=== PATIENT | female | born 1980 | race African-American/Black ===

== ENCOUNTER 2017-01-29 14:14 | Emergency (ER) | payer OTHER ==
[2017-01-29] MEDS ORDERED: IOPAMIDOL 300 (61%) 100 ML VIAL IV ONE (14:15)
[2017-01-29 14:41] LABS: SPECIFIC GRAVITY 1.015 (1.001-1.030); URINE APPEARANCE CLEAR; URINE BILIRUBIN NEGATIVE (NEGATIVE); URINE BLOOD NEGATIVE (NEGATIVE); URINE COLOR YELLOW; URINE GLUCOSE (UA) 3+ (NEGATIVE); URINE LEUKOCYTE ESTERASE NEGATIVE (NEGATIVE); URINE NITRITE NEGATIVE (NEGATIVE); URINE PROTEIN NEGATIVE (NEGATIVE); URINE UROBILINOGEN NORMAL (0-1 mg/dl)
[2017-01-29 14:43] LABS: HCG,QUALITATIVE URINE NEGATIVE
[2017-01-29] MEDS ORDERED: LACTATED RINGERS 1,000 ML ONE (15:05)
[2017-01-29] MEDS ORDERED: LORAZEPAM 2 MG/ML 1ML SDV ONE (15:06)
[2017-01-29 15:23] LABS: ABSOLUTE NEUTROPHIL COUNT 7.9 K/mm3 (1.8-7.7); BASO # 0.1 K/mm3 (0.0-0.2); BASO % 0.5 % (0.2-1.0); EOS # 0.1 (0.0-0.5); HEMATOCRIT 43.9 % (37.0-47.0); IMM NEUT # 0.1 K/mm3 (0-0.2); IMM NEUT% 0.5 % (0-1); LYMPH # 2.7 (1.0-4.8); LYMPH % 23.5 % (15-45); MEAN CELL VOLUME 87.8 fl (81.0-99.0); MEAN CORPUSCULAR HGB CONC 34.2 g/dl (33.0-37.0); MEAN PLATELET VOLUME 11.9 fl (7.4-10.4); MONO # 0.7 (0.0-0.8); MONO % 5.7 % (4-12); NEUT % 68.8 % (43-75); PLATELET COUNT 234 K/mm3 (130-400); RED CELL DISTRIBUTION WIDTH 12.4 % (11.5-14.5)
[2017-01-29 15:37] LABS: ALB/GLOB RATIO 1.1 (>1.0); CALCIUM 9.6 mg/dL (8.6-10.3); MAGNESIUM 1.8 mg/dL (1.9-2.7)
--- NOTE | 2017-01-29 15:53 | CT ---
Exam Type: ABD/PELVIS W/ CON Date and Time: 01/29/2017 3:18 PM Clinical information: Upper mid abdominal pain for 2 days. Comparison: None Procedure: Imaging device: [employer] [address] scanner 1 mm axial images were obtained through the abdomen and pelvis. Stacked reconstructed 3, 4 and 5 mm images were photographed in the axial coronal and sagittal planes. No oral contrast was utilized for this examination. 100 ml of Isovue-300 was injected intravenously. Exam: with intravenous contrast. FINDINGS: Lung bases:The visualized lung bases appear to be appropriate with no mass, effusion or consolidation visualized. Liver: the liver is homogeneous with no discrete abnormality visualized. No definite findings of biliary dilatation are observed. Spleen: There are numerous scattered splenic calcifications identified suggesting prior granulomatous disease. Gallbladder: Normal without enlargement or evidence of adjacent inflammatory changes. Pancreas: Normal without enlargement or evidence of adjacent inflammatory changes. Adrenal glands: Normal without enlargement or evidence of adjacent inflammatory changes. Abdominal aorta: The aorta is of normal caliber and appears to be without significant atherosclerotic disease. Kidneys: The kidneys appear to be of relatively symmetric size. There is a 3.9 cm low-attenuation focus within the anterior left kidney most likely reflecting a renal cyst. No evidence of hydronephrosis is seen. Bowel structures: The visualized bowel is of normal caliber without evidence of dilatation or obstruction. No free fluid or mesenteric inflammatory changes are identified. Appendix: The appendix is well-visualized and appears to be of normal caliber. No periappendiceal inflammatory changes or CT findings of appendicitis are currently observed. Bladder: The bladder is of normal contour. No wall thickening or significant distention is observed. Hernia: There is a small fat filled umbilical hernia visualized. Adenopathy: No significant enlarged adenopathy is visualized. Osseous structures: Lumbar degenerative changes are present, particularly at L5-S1. Pelvic structures: There is an intrauterine device within the fundal aspect of the endometrial canal. No significant pelvic free fluid is visualized. IMPRESSION: 1. A normal appearance of the appendix without CT evidence of appendicitis. 2. Evidence of prior granulomatous disease. 3. A probable left renal cyst. 4. Lumbar degenerative changes at the L5-S1 level. 5. An indwelling intrauterine device within the fundal portion of the endometrial canal.
[2017-01-29 16:16] LABS: A1C-GLYCOHEMOGLOBIN 1.4 g/dl; HEMOGLOBIN-GLYCO 15.1 g/dl
== END 2017-01-29 17:03 | disposition home or self-care (01) ==
LOC: ED 14:14
DX: E11.65 Type 2 diabetes mellitus with hyperglycemia (principal); R14.0 Abdominal distension (gaseous); I10 Essential (primary) hypertension; J44.9 Chronic obstructive pulmonary disease, unspecified; F17.210 Nicotine dependence, cigarettes, uncomplicated